=== PATIENT | female | born 1990 | race Caucasian/White ===

== ENCOUNTER → 2019-04-04 | Outpatient (CLI) | payer OTHER ==
--- NOTE | 2019-04-04 13:16 | US ---
EXAMINATION TYPE: US pelvic complete DATE OF EXAM: 04/04/2019 COMPARISON: 2014 CLINICAL HISTORY: N94.6 DYSMENORRHEA. TECHNIQUE: Transabdominal sonographic images of the pelvis were acquired. Date of LMP: 03/29/2019 EXAM MEASUREMENTS: Uterus: 8.1 X 3.0 X 3.9 cm Endometrial Stripe: 0.3 cm Right Ovary: 2.6 x 1.2 x 1.6 cm Left Ovary: 2.4 x 1.6 x 2.1 cm 1. Uterus: Anteverted wnl 2. Endometrium: wnl 3. Right Ovary: wnl 4. Left Ovary: wnl 5. Bilateral Adnexa: wnl 6. Posterior cul-de-sac: wnl IMPRESSION: Right ovarian cyst has resolved. Unremarkable pelvic ultrasound.
== END | disposition home or self-care (01) ==
LOC: RADUSWWP 12:02
PROVIDERS: ATTEND Family Medicine
DX: N94.6 Dysmenorrhea, unspecified (principal)
CPT/HCPCS: 76856

== ENCOUNTER → 2019-04-30 | Outpatient (CLI) | payer OTHER ==
--- NOTE | 2019-04-30 11:30 | US ---
EXAMINATION TYPE: US thyroid st tissue head/neck DATE OF EXAM: 04/30/2019 COMPARISON: NONE CLINICAL HISTORY: E04.9 Enlarged thyroid, E04.1 Nodule. GLAND SIZE: Right Lobe: 6.4 x 1.8 x 2.7 cm Overall Parenchyma: homogenous Left Lobe: 6.2 x 1.8 x 2.2 cm Overall Parenchyma: homogeneous Isthmus Thickness: 0.2 cm NODULES RIGHT: # of nodules measured on right: 1 1. 0.8 x 0.5 x 0.7cm hypoechoic complex nodule at the lateral mid pole with well-defined margins. Thi s nodule is wider than tall and shows intranodular vascularity. prior size: 0.8 x 0.5 x 0.7cm LEFT: # of nodules measured on left: 2 1. 0.4 x 0.3 x 0.3cm anechoic nodule at the mid pole with well-defined margins. This nodule is wider than tall and shows no intranodular vascularity. prior size: 0.5 x 0.4 x 0.5cm 2. 0.4 x 0.4 x 0.4 cm anechoic nodule at the mid lower pole with well-defined margins. This nodule i s wider than tall and shows no intranodular vascularity. prior size: 0.4 x 0.4 x 0.4cm ISTHMUS: # of nodules measured in the isthmus: 0 Bilateral neck scanned, no evidence of lymphadenopathy. IMPRESSION: 1. Bilateral subcentimeter thyroid nodules.
== END ==
LOC: RADUSWWP 10:42
PROVIDERS: ATTEND Family Medicine
DX: E04.2 Nontoxic multinodular goiter (principal)
CPT/HCPCS: 76536

== ENCOUNTER → 2021-03-12 | Outpatient (CLI) | payer BC ==
--- NOTE | 2021-03-12 10:19 | XR ---
EXAMINATION TYPE: XR lumbar spine 2 or 3V DATE OF EXAM: 03/12/2021 COMPARISON: 05/06/2016 HISTORY: Pain TECHNIQUE: 3 view lumbar spine FINDINGS: There are 5 lumbar-type vertebral bodies. Pedicles are intact. Disc heights are preserved. Vertebral body are preserved. Sagittal alignment appears normal. There is mild rotoscoliosis convexit y to the left centered at L2 in the frontal projection. IMPRESSION: 1. Mild rotoscoliosis.
== END | disposition home or self-care (01) ==
LOC: RADXRMAIN 09:50
PROVIDERS: ATTEND Internal Medicine
DX: M41.86 Other forms of scoliosis, lumbar region (principal)
CPT/HCPCS: 72100

== ENCOUNTER 2021-06-11 12:14 | Emergency (ER) | payer BC ==
[2021-06-11] MEDS ORDERED: SODIUM CHLORIDE 0.9% 500 ML 500 ML IV ONE (13:10)
[2021-06-11] MEDS ORDERED: SODIUM CHLORIDE 0.9% 1,000 ML IV ONE (13:10)
[2021-06-11] MEDS ORDERED: ACETAMINOPHEN TAB 500 MG TAB PO STA (13:11)
[2021-06-11] MEDS ORDERED: KETOROLAC 15 MG/ML 1 ML VIAL IVP STA (13:11)
--- NOTE | 2021-06-11 13:42 | ED ---
URI HPI - General Chief Complaint: Upper Respiratory Infection Stated Complaint: sob/cough Time Seen by Provider: 06/11/21 12:49 Source: patient, family, RN notes reviewed Mode of arrival: wheelchair Limitations: no limitations - History of Present Illness Initial Comments: This a 30-year-old female presents emergency from she complaint of chest pain, shortness of breath. Patient states that she tested positive for COVID-19 8 days ago, has been having symptoms for 10+ days. Patient states that she starting having increasing symptoms, exertional pain and shortness of breath. Patient has had no prior DVT no prior PE does not take any blood thinners no hormonal medications. Patient denies any nausea vomiting. Patient's is feels very weak, body aches. - Related Data Home Medications Medication Instructions Recorded Confirmed ALPRAZolam [Xanax] 0.5 - 1 mg PO BID PRN 06/11/21 06/11/21 Albuterol Inhaler [Ventolin Hfa 2 puff INHALATION RT-Q6H PRN 06/11/21 06/11/21 Inhaler] Azithromycin [Zithromax Z-pack (6 See Taper PO DAILY 06/11/21 06/11/21 tabs)] Cholecalciferol [Vitamin D3 (25 50 mcg PO DAILY 06/11/21 06/11/21 Mcg = 1000 Iu)] methylPREDNISolone [Medrol Dose See Taper PO DAILY 06/11/21 06/11/21 Pack] Previous Rx's Medication Instructions Recorded Dexamethasone [Decadron] 6 mg PO DAILY #5 tablet 06/11/21 Allergies Allergy/AdvReac Type Severity Reaction Status Date / Time No Known Allergies Allergy Verified 06/11/21 14:49 Review of Systems ROS Statement: Those systems with pertinent positive or pertinent negative responses have been documented in the HPI. ROS Other: All systems not noted in ROS Statement are negative. Past Medical History Past Medical History: Thyroid Disorder Additional Past Medical History / Comment(s): cyst on ovary History of Any Multi-Drug Resistant Organisms: None Reported Past Surgical History: No Surgical Hx Reported Past Anesthesia/Blood Transfusion Reactions: No Reported Reaction Past Psychological History: No Psychological Hx Reported Smoking Status: Never smoker Past Alcohol Use History: Occasional Past Drug Use History: None Reported - Past Family History Mother Family Medical History: Cancer Additional Family Medical History / Comment(s): cervical cancer General Exam Limitations: no limitations General appearance: alert, in distress Head exam: Present: atraumatic, normocephalic, normal inspection Eye exam: Present: normal appearance, PERRL, EOMI. Absent: scleral icterus, conjunctival injection, periorbital swelling ENT exam: Present: normal oropharynx, mucous membranes moist Neck exam: Present: normal inspection, full ROM. Absent: tenderness, meningismus, lymphadenopathy Respiratory exam: Present: rhonchi, decreased breath sounds. Absent: normal lung sounds bilaterally, respiratory distress, wheezes, rales, stridor Cardiovascular Exam: Present: normal rhythm, tachycardia, normal heart sounds. Absent: systolic murmur, diastolic murmur, rubs, gallop, clicks GI/Abdominal exam: Present: soft, normal bowel sounds. Absent: distended, tenderness, guarding, rebound, rigid Course Vital Signs 06/11/21 06/11/21 12:40 13:44 Temperature 99.2 F Pulse Rate 123 H Respiratory 24 20 Rate Blood Pressure 119/83 O2 Sat by Pulse 93 L Oximetry Medical Decision Making - Medical Decision Making CT was reviewed there is no evidence of large PE. Patient does have bilateral COVID-19 pneumonia. Patient's pulse ox oximetry 9395%. Patient states she does feel improved after antipyretics, fluids. We discussed return for patient discharge and dexamethasone return parameters discussed - Lab Data Result diagrams: 06/11/21 13:44 Lab Results 06/11/21 Range/Units 13:44 WBC 5.8 (3.8-10.6) k/uL RBC 4.84 (3.80-5.40) m/uL Hgb 15.9 (11.4-16.0) gm/dL Hct 46.4 H (34.0-46.0) % MCV 95.9 (80.0-100.0) fL MCH 32.9 (25.0-35.0) pg MCHC 34.3 (31.0-37.0) g/dL RDW 13.9 (11.5-15.5) % Plt Count 190 (150-450) k/uL MPV 10.7 Neutrophils % 81 % Lymphocytes % 11 % Monocytes % 6 % Eosinophils % 0 % Basophils % 0 % Neutrophils # 4.7 (1.3-7.7) k/uL Lymphocytes # 0.6 L (1.0-4.8) k/uL Monocytes # 0.4 (0-1.0) k/uL Eosinophils # 0.0 (0-0.7) k/uL Basophils # 0.0 (0-0.2) k/uL Poikilocytosis Slight - EKG Data -: EKG Interpreted by Me EKG Comments: EKG performed at 14:29 sinus tachycardia rate of 101 OR 166 QRS 90 QT status QTC 358/464 Disposition Clinical Impression: COVID-19 Disposition: HOME SELF-CARE Condition: Stable Instructions (If sedation given, give patient instructions): Coronavirus Disease 2019 (COVID-19) Additional Instructions: Please return to the Emergency Department if symptoms worsen or any other concerns. Prescriptions: Dexamethasone [Decadron] 6 mg PO DAILY #5 tablet Is patient prescribed a controlled substance at d/c from ED?: No Referrals: Mckenzie Carmichael MD [Primary Care Provider] - 1-2 days Time of Disposition: 14:57
[2021-06-11 14:15] LABS: Basophils % (A) 0 %; Eosinophils % (A) 0 %; HCT 46.4 % (34.0-46.0); HGB 15.9 gm/dL (11.4-16.0); Lymphocytes # (A) 0.6 k/uL (1.0-4.8); Lymphocytes % (A) 11 %; MCH 32.9 pg (25.0-35.0); MCHC 34.3 g/dL (31.0-37.0); MCV 95.9 fL (80.0-100.0); Mean Platelet Volume 10.7; Monocytes # (A) 0.4 k/uL (0-1.0); Monocytes % (A) 6 %; Neutrophils # (A) 4.7 k/uL (1.3-7.7); Neutrophils % (A) 81 %; Platelet Count 190 k/uL (150-450); Poikilocytosis Slight; RBC 4.84 m/uL (3.80-5.40); RDW 13.9 % (11.5-15.5); WBC 5.8 k/uL (3.8-10.6)
--- NOTE | 2021-06-11 14:41 | CT ---
EXAMINATION TYPE: CT chest angio for PE DATE OF EXAM: 06/11/2021 COMPARISON: 06/02/2016 HISTORY: 30-year-old female pain, SOB and h/o covid TECHNIQUE: Contiguous axial scanning of the chest performed with IV Contrast, patient injected with 1 00 mL of Isovue 370. Coronal and sagittal MIP reconstructions performed. CT DLP: 538.3 mGycm Automated exposure control for dose reduction was used. FINDINGS: Heart normal size without pericardial effusion. No flattening of the interventricular septum or reflu x of contrast into the hepatic veins. Aorta normal caliber with conventional arch vessel branching anatomy. Prominent but nonenlarged 7 mm precarinal lymph node. Enlarged 2.0 cm right hilar lymph node. Additio nal nonenlarged left hilar lymph nodes. Calcified left infrahilar lymph node compatible prior granulo matous disease. There appears to be a third right-sided pulmonary vein. While there is satisfactory opacification of the pulmonary arterial system, there is breathing motion artifact limiting the evaluation. Within this limitation, no large central or lobar branch pulmonary embolus is seen. Many of the segmental and more distal arterial branches are very limited and nondia gnostic. Multifocal peripheral peribronchial vascular groundglass opacity disease within mid and lower lung pr edominance. No pleural effusion. Visualized upper abdomen shows splenomegaly at 15.0 cm. Suspect underlying hepatic steatosis. IMPRESSION: 1. BREATHING MOTION ARTIFACT DEGRADING ASSESSMENT FOR PULMONARY EMBOLUS. NO LARGE CENTRAL OR LOBAR BR ANCH EMBOLUS. MANY OF THE SEGMENTAL AND MORE DISTAL ARTERIAL BRANCHES ARE VERY LIMITED TO NONDIAGNOST IC AND EMBOLI IN THESE LOCATIONS CANNOT BE ADEQUATELY EXCLUDED ON THE BASIS OF THIS EXAM. 2. BILATERAL COVID PNEUMONIA. 3. SPLENOMEGALY AT 15.0 CM. CLINICALLY CORRELATE.
[2021-06-11] MEDS ORDERED: DEXAMETHASONE SOD PHOSPHATE 10 MG/ML 1 ML VIAL IVP STA (14:42)
[2021-06-11 14:59] LABS: ALT 20 U/L (4-34); AST 34 U/L (14-36); African American GFR (CKD) >90 (>60 ml/min/1.73 sqM); Albumin 3.4 g/dL (3.5-5.0); Alkaline Phosphatase 48 U/L (38-126); Anion Gap 7 mmol/L; Blood Urea Nitrogen 8 mg/dL (7-17); Calcium 8.2 mg/dL (8.4-10.2); Carbon Dioxide 21 mmol/L (22-30); Chloride 104 mmol/L (98-107); Glucose 106 mg/dL (74-99); LDH 1156 U/L (313-618); Non-African American GFR(CKD) >90 (>60 ml/min/1.73 sqM); Potassium 3.5 mmol/L (3.5-5.1); Sodium 132 mmol/L (137-145); Total Bilirubin 0.5 mg/dL (0.2-1.3); Total Protein 6.6 g/dL (6.3-8.2)
[2021-06-11 15:02] VITALS: BP 127/70; PULSE 98; RESP 18; TEMP 98.7
[2021-06-11 15:15] LABS: C Reactive Protein 14.5 mg/dL (<1.0)
== END 2021-06-11 15:19 | disposition home or self-care (01) ==
LOC: EC 12:14
DX: U07.1 COVID-19 (principal); J12.82 Pneumonia due to coronavirus disease 2019; Z79.899 Other long term (current) drug therapy
CPT/HCPCS: 36415; 93005; 80053; 83615; 85025; 86140; 71275; 99285; 96374; 96375; 96361; J1100; J1885; Q9967

== ENCOUNTER → 2021-06-23 | Outpatient (CLI) | payer BC ==
--- NOTE | 2021-06-23 11:37 | XR ---
EXAMINATION TYPE: XR chest 2V DATE OF EXAM: 06/23/2021 COMPARISON: 06/02/[address] 06/11/2021 HISTORY: 30-year-old female dyspnea, shortness of breath. TECHNIQUE: Frontal and lateral views FINDINGS: Heart normal size. Patchy airspace opacities in the bilateral mid and lower lungs. No pleural effusio n. No pneumothorax. IMPRESSION: Ongoing patchy bilateral mid and lower lung COVID pneumonia.
--- NOTE | 2021-06-23 12:23 | US ---
EXAMINATION TYPE: US venous doppler duplex LE DATE OF EXAM: 06/23/2021 11:26 AM COMPARISON: CT chest CLINICAL HISTORY: M79.66 pain LE M22.42 swelling LE. Left leg swelling x 2 days post COVID 19 SIDE PERFORMED: Bilateral TECHNIQUE: The lower extremity deep venous system is examined utilizing real time linear array sonog annika with graded compression, doppler sonography and color-flow sonography. VESSELS IMAGED: Common Femoral Vein Deep Femoral Vein Greater Saphenous Vein * Femoral Vein Popliteal Vein Small Saphenous Vein * Proximal Calf Veins (* superficial vessels) Right Leg: Negative for DVT Left Leg: Negative for DVT IMPRESSION: No evidence of DVT.
== END | disposition home or self-care (01) ==
LOC: RADXRMAIN 11:20
PROVIDERS: ATTEND Internal Medicine
DX: M79.662 Pain in left lower leg (principal); R22.42 Localized swelling, mass and lump, left lower limb; R06.02 Shortness of breath; Z86.16 Personal history of COVID-19
CPT/HCPCS: 71046; 93970

== ENCOUNTER → 2021-10-28 | Outpatient (CLI) | payer BC ==
--- NOTE | 2021-10-29 08:48 | US ---
EXAMINATION TYPE: US thyroid st tissue head/neck DATE OF EXAM: 10/28/2021 COMPARISON: NONE CLINICAL HISTORY: E04.9 Nontoxic goiter. Thyroid nodules GLAND SIZE: Right Lobe: 5.9 x 1.8 x 2.7 cm Overall Parenchyma: homogenous Left Lobe: 6.0 x 1.8 x 2.5 cm Overall Parenchyma: homogeneous Isthmus Thickness: .3 cm NODULES RIGHT: # of nodules measured on right: 1 1. 1.3 X 1.2 x .8 cm, lower lateral, mixed cystic and solid, complex hypoechoic with cystic compon ents nodule, which is wider than tall, with smooth margins, without echogenic foci. TR 3 mildly suspi cious Prior size: .8 x .5 x .7 cm LEFT: # of nodules measured on left: Multiple subcentimeter nodules seen. ISTHMUS: # of nodules measured in the isthmus: 0 Bilateral neck scanned, no evidence of lymphadenopathy. IMPRESSION: 1. Mildly suspicious nodule right lobe thyroid 2017 ACR TI-RADS LEVEL: TR-RADS 3 - Mildly Suspicious: Follow if > 1.5 cm, FNA if > 2.5 cm *Highest TI-RADS level nodule reported
== END | disposition home or self-care (01) ==
LOC: RADUSWWP 15:29
PROVIDERS: ATTEND Family Medicine
DX: E04.9 Nontoxic goiter, unspecified (principal)
CPT/HCPCS: 76536

== ENCOUNTER → 2022-07-29 | Outpatient (CLI) | payer BC ==
--- NOTE | 2022-07-29 14:03 | US ---
EXAMINATION TYPE: US thyroid st tissue head/neck DATE OF EXAM: 07/29/2022 COMPARISON: 10/28/2021 CLINICAL HISTORY: E04.9 NONTOXIC GOITER, UNSPECIFIED. GLAND SIZE: Right Lobe: 8.1 x 2.1 x 2.6 cm Overall Parenchyma: homogenous Left Lobe: 7.1 x 1.9 x 2.0 cm Overall Parenchyma: homogeneous Isthmus Thickness: 0.51 cm NODULES RIGHT: # of nodules measured on right: 1 1. 1.3 X 0.72 x 1.2 cm, lower , mixed cystic and solid, which is wider than tall, with smooth marnie ns, without echogenic foci. Prior size: 1.3 x 0.8 x 1.2 cm LEFT: # of nodules measured on left: Multiple subcentimeter nodules, largest measured 1. 0.51 X 0.37 x 0.55 cm, upper , cystic or almost completely cystic, anechoic nodule, which is wid er than tall, with smooth margins, without echogenic foci. Stable from prior exam. ISTHMUS: # of nodules measured in the isthmus: 0 Bilateral neck scanned, no evidence of lymphadenopathy. IMPRESSION: Stable right thyroid lobe nodule measuring up to 1.3 cm consistent with TI-RADS category TR3. 2017 ACR TI-RADS LEVEL: TR-RADS 3 - Mildly Suspicious: Follow if > 1.5 cm, FNA if > 2.5 cm *Highest TI-RADS level nodule reported
== END | disposition home or self-care (01) ==
LOC: RADUSWWP 13:32
PROVIDERS: ATTEND Family Medicine
DX: E04.1 Nontoxic single thyroid nodule (principal)
CPT/HCPCS: 76536

== ENCOUNTER 2022-08-03 20:39 | Emergency (ER) | payer BC ==
[2022-08-03 21:07] VITALS: BP 122/91; PULSE 76; RESP 16; TEMP 97.9
[2022-08-03] MEDS ORDERED: LIDOCAINE 1% INJ 10MG/ML (30 ML VIAL-PF) SQ ONE (22:44)
[2022-08-03] MEDS ORDERED: ACET/COD 300 MG/30 MG STARTER PACK 6 TAB BTL PO STA (23:19)
--- NOTE | 2022-08-03 23:21 | ED ---
Wound/Laceration HPI - General Chief Complaint: Wound/Laceration Stated Complaint: left finger laceration Time Seen by Provider: 08/03/22 22:07 Source: patient, RN notes reviewed Mode of arrival: ambulatory Limitations: no limitations - History of Present Illness Initial Comments: This is a 31-year-old female who presents to the emergency department for a left finger laceration. States that she was chopping tomatoes when this happened. Unsure when her last tetanus shot was. Denies any fevers, chills, sore throat, cough, dyspnea, chest pain, palpitations, abdominal pain, nausea, vomiting, diarrhea, back pain, or headaches. - Related Data Home Medications Medication Instructions Recorded Confirmed ALPRAZolam [Xanax] 0.5 - 1 mg PO BID PRN 06/11/21 06/11/21 Albuterol Inhaler [Ventolin Hfa 2 puff INHALATION RT-Q6H PRN 06/11/21 06/11/21 Inhaler] Azithromycin [Zithromax Z-pack (6 See Taper PO DAILY 06/11/21 06/11/21 tabs)] Cholecalciferol [Vitamin D3 (25 50 mcg PO DAILY 06/11/21 06/11/21 Mcg = 1000 Iu)] methylPREDNISolone [Medrol Dose See Taper PO DAILY 06/11/21 06/11/21 Pack] Previous Rx's Medication Instructions Recorded dexAMETHasone [Decadron] 6 mg PO DAILY #5 tablet 06/11/21 Allergies Allergy/AdvReac Type Severity Reaction Status Date / Time No Known Allergies Allergy Verified 08/03/22 21:03 Review of Systems ROS Statement: Those systems with pertinent positive or pertinent negative responses have been documented in the HPI. ROS Other: All systems not noted in ROS Statement are negative. Past Medical History Past Medical History: Thyroid Disorder Additional Past Medical History / Comment(s): cyst on ovary History of Any Multi-Drug Resistant Organisms: None Reported Past Surgical History: No Surgical Hx Reported Past Anesthesia/Blood Transfusion Reactions: No Reported Reaction Past Psychological History: No Psychological Hx Reported Smoking Status: Never smoker Past Alcohol Use History: Occasional Past Drug Use History: None Reported - Past Family History Mother Family Medical History: Cancer Additional Family Medical History / Comment(s): cervical cancer General Exam Limitations: no limitations General appearance: alert, in no apparent distress Head exam: Present: atraumatic, normocephalic, normal inspection Respiratory exam: Present: normal lung sounds bilaterally. Absent: respiratory distress, wheezes, rales, rhonchi, stridor Cardiovascular Exam: Present: regular rate, normal rhythm, normal heart sounds. Absent: systolic murmur, diastolic murmur, rubs, gallop, clicks Neurological exam: Present: alert, oriented X3, CN II-XII intact Psychiatric exam: Present: normal affect, normal mood Skin exam: Present: other (3 cm flap laceration to the finger pad of the left third digit. Active bleeding. Visible subcutaneous tissue.) Course Vital Signs 08/03/22 21:04 Temperature 97.9 F Pulse Rate 76 Respiratory 16 Rate Blood Pressure 122/91 O2 Sat by Pulse 96 Oximetry Procedures - Laceration Laceration #1 Consent Obtained: verbal consent Indication: laceration Site: other (finger) Size (cm): 3 Description: flap Depth: simple, single layer Anesthetic Used: lidocaine 1% Anesthesia Technique: local infiltration Amount (mls): 2 Type of Sutures: nylon Size of Sutures: 5-0 Number of Sutures: 4 Technique: simple, interrupted Medical Decision Making - Medical Decision Making This is a 31-year-old female who presents to the emergency department for a laceration. Was pt. sent in by a medical professional or institution? @ -No Did you speak to anyone other than the patient for history? @ -No Did you review nursing and triage notes? @ -Agree, accurate with regards to the patient's symptoms. Were old charts reviewed? @ -No Differential Diagnosis? @ -Not applicable What testing was considered but not performed? (CT, X-rays, U/S, labs)? Why? @ -None What meds were considered but not given? Why? @ -None Did you discuss the management of the patient with other professionals? @ -No Did you reconcile home meds? @ -No Was smoking cessation discussed for >3mins.? @ -No Was critical care preformed (if so, how long)? @ -No Were there social determinants of health that impacted care today? How? (Homelessness, low income, unemployed, alcoholism, drug addiction, transportation, low edu. Level, literacy, decrease access to med. care, skilled nursing, rehab)? @ -No Was there de-escalation of care discussed even if they declined? (Discuss DNR or withdrawal of care, Hospice)? @ -No What co-morbidities impacted this encounter? (DM, HTN, Smoking, COPD, CAD, Cancer, CVA, Hep., AIDS, mental health diagnosis, sleep apnea, morbid obesity)? @ -None Was patient admitted / discharged? @ -Discharged. Sutures were placed. I did strongly advise a tetanus vaccine, however the patient declined despite my strongest recommendations. She is instructed to return in 5-7 days for suture removal. Advised ibuprofen and Tylenol as needed for pain relief. Drug Therapy requiring intensive monitoring for toxicity (Heparin, Nitro, Insulin, Cardizem)? @ -None Were any procedures done? @ -Yes, laceration repair with sutures. Diagnosis/symptom? @ -Laceration Acute, or Chronic, or Acute on Chronic? @ -Acute Uncomplicated (without systemic symptoms) or Complicated (systemic symptoms)? @ -Uncomplicated Side effects of treatment? @ -Infection Exacerbation, Progression, or Severe Exacerbation] @ -Not applicable Poses a threat to life or bodily function? @ -No Return precautions reviewed in depth, the patient is instructed to return to the emergency department with any new, worsening, or concerning symptoms. Patient verbalized understanding. This case was discussed in detail with the attending ED physician. Presentation, findings, and treatment plan discussed in detail as well. Disposition Clinical Impression: Laceration Disposition: HOME SELF-CARE Instructions (If sedation given, give patient instructions): Care For Your Stitches (ED) Additional Instructions: Return to the emergency department with any new, worsening, or concerning symptoms and in 5-7 days for removal of the stitches. Alternate with ibuprofen and Tylenol as needed for pain relief. You can apply ice over the finger, however keep a barrier between the finger and the ice pack with something like a washcloth or paper towel. Follow up with your primary care provider in 1-2 days. Is patient prescribed a controlled substance at d/c from ED?: No Referrals: Prasanth Vale III, MD [Primary Care Provider] - 1-2 days
== END 2022-08-03 23:34 | disposition home or self-care (01) ==
LOC: EC 20:39
DX: S61.213A Laceration without foreign body of left middle finger without damage to nail, initial encounter (principal); X58.XXXA Exposure to other specified factors, initial encounter
CPT/HCPCS: 99282; 12002; J2001

== ENCOUNTER → 2023-01-27 | Outpatient (CLI) | payer BC | END | disposition home or self-care (01) | LOC: RADUSWWP 12:11 | PROVIDERS: ATTEND Family Medicine | DX: Z53.9 Procedure and treatment not carried out, unspecified reason (principal) ==

== ENCOUNTER → 2023-09-12 | Outpatient (CLI) | payer MEDICAID ==
[2023-09-12 16:12] LABS: ALT 26 U/L (8-44); AST 20 U/L (13-35); Albumin 4.4 g/dL (3.8-4.9); Albumin/Globulin Ratio 1.47 Ratio (1.60-3.17); Alkaline Phosphatase 91 U/L (41-126); BUN/Creat Ratio 18.67 Ratio (12.00-20.00); Blood Urea Nitrogen 11.2 mg/dL (9.0-27.0); Calcium 9.3 mg/dL (8.7-10.3); Carbon Dioxide 23.8 mmol/L (21.6-31.8); Chloride 102 mmol/L (96-109); Chol/HDL Ratio 2.52 Ratio; Glucose 92 mg/dL (70-110); LDL Cholesterol,Calculated 70.1 mg/dL (0.0-131.0); Potassium 4.4 mmol/L (3.5-5.5); Sodium 137 mmol/L (135-145); T4, Free (Free Thyroxine) 1.05 ng/dL (0.80-1.80); Total Bilirubin 0.4 mg/dL (0.3-1.2); Total Protein 7.4 g/dL (6.2-8.2)
[2023-09-12 16:17] LABS: Basophils # (A) 0.03 X 10*3/uL (0.00-0.10); Basophils % (A) 0.4 %; Eosinophils # (A) 0.05 X 10*3/uL (0.04-0.35); Eosinophils % (A) 0.7 %; HCT 46.6 % (37.2-46.3); HGB 15.3 g/dL (12.0-15.0); Lymphocytes # (A) 2.37 X 10*3/uL (0.90-5.00); Lymphocytes % (A) 32.4 %; MCH 31.6 pg (27.0-32.0); MCHC 32.8 g/dL (32.0-37.0); MCV 96.3 FL (80.0-97.0); Mean Platelet Volume 11.2 FL (9.5-12.2); Monocytes # (A) 0.63 X 10*3/uL (0.20-1.00); Monocytes % (A) 8.6 %; NRBC Per 100 WBC 0 X 10*3/uL (0.00-0.01); Neutrophils # (A) 4.21 X 10*3/uL (1.80-7.70); Neutrophils % (A) 57.6 %; Platelet Count 255 X 10*3/uL (140-440); RBC 4.84 X 10*6/uL (4.10-5.20); RDW 13.1 % (11.5-14.5); WBC 7.31 X 10*3/uL (4.50-10.00)
[2023-09-12 18:16] LABS: Appearance,Urine Clear (Clear); Bilirubin,Urine Negative (Negative); Blood,Urine Negative (Negative); Color,Urine Yellow (Yellow); Ketones,Urine Negative (Negative); Nitrite,Urine Negative (Negative); PH, Urine 6.5; Specific Gravity,Urine 1.007 (1.001-1.030); Urobilinogen,Urine 0.2 E.U./DL
--- NOTE | 2023-09-13 14:43 | US ---
EXAMINATION TYPE: US thyroid st tissue head/neck DATE OF EXAM: 09/12/2023 COMPARISON: 07/29/2022 CLINICAL INDICATION: Female, 32 years old with history of E04.9 NONTOXIC GOITER, UNSPECIFIED; thy nod ule GLAND SIZE: Right Lobe: 6.1 x 2.1 x 2.8 cm Overall Parenchyma: homogeneous Left Lobe: 6.6 x 1.8 x 2.5 cm Overall Parenchyma: homogeneous Isthmus Thickness: 4 mm NODULES RIGHT: # of nodules measured on right: 1 1. 1.2 X .7 x 1.0 cm, lower lateral, mixed cystic and solid, TR 3 nodule, which is wider than tall, with smooth margins, without echogenic foci. Prior size: 1.3 x .7 x 1.2 cm LEFT: # of nodules measured on left: multiple subcentimeter measured largest. 1. .6 X .3 x .6 cm, upper lateral, likely colloid cyst. Prior size: .5 x .4 x .6 cm ISTHMUS: # of nodules measured in the isthmus: 0 Bilateral neck scanned, no evidence of lymphadenopathy. IMPRESSION: 1. Mild thyromegaly. 2. Stable mixed TR3 nodule in the right lobe at 1.2 cm. 3. Benign 6 mm colloid cyst on the left. Additional smaller nodules are present on the left. 2017 ACR TI-RADS LEVEL: TR-RADS 3 - Mildly Suspicious: Follow if > 1.5 cm, FNA if > 2.5 cm *Highest TI-RADS level nodule reported
== END | disposition home or self-care (01) ==
LOC: RADUSWWP 11:50
PROVIDERS: ATTEND Family Medicine
DX: E04.1 Nontoxic single thyroid nodule (principal); R22.0 Localized swelling, mass and lump, head; E66.9 Obesity, unspecified
CPT/HCPCS: 76536; 80053; 80061; 81003; 82306; 83036; 84439; 84443; 84481; 85025

== ENCOUNTER → 2024-04-22 | Outpatient (CLI) | payer MEDICAID ==
--- NOTE | 2024-04-22 18:24 | US ---
EXAMINATION TYPE: US thyroid st tissue head/neck DATE OF EXAM: 04/22/2024 COMPARISON: NONE CLINICAL INDICATION: Female, 33 years old with history of E04.1 NONTOXIC SINGLE THYROID NODULE; follo w up GLAND SIZE: Right Lobe: 6.2 x 2.0 x 2.7 cm Overall Parenchyma: homogeneous Left Lobe: 6.0 x 1.7 x 2.5 cm Overall Parenchyma: homogeneous Isthmus Thickness: 0.3 cm NODULES RIGHT: # of nodules measured on right: 1 1. 1.1 X 0.8 x 1.0 cm, lower lateral, mixed cystic and solid, nodule, which is wider than tall, wit h smooth margins, without echogenic foci. Prior size: 1.2 x 0.7 x 1.0 cm LEFT: # of nodules measured on left: 1 1. 0.7 X 0.4 x 0.8 cm, upper lateral, cystic or almost completely cystic, hypoechoic nodule, which is wider than tall, with smooth margins, without echogenic foci. Prior size: 0.6 x 0.3 x 0.6 cm ISTHMUS: # of nodules measured in the isthmus: 0 Bilateral neck scanned, no evidence of lymphadenopathy. IMPRESSION: TR-RADS 3 - Mildly Suspicious: Follow if > 1.5 cm, FNA if > 2.5 cm [facility] Braun, , 04/22/2024 6:22 PM
== END | disposition home or self-care (01) ==
LOC: RADUSWWP 11:25
PROVIDERS: ATTEND Family Medicine
DX: E04.1 Nontoxic single thyroid nodule (principal)
CPT/HCPCS: 76536

== ENCOUNTER → 2024-06-02 | Outpatient (CLI) | payer MEDICAID ==
--- NOTE | 2024-06-02 20:56 | MR ---
EXAMINATION TYPE: MRI left knee without IV contrast DATE OF EXAM: 06/02/2024 COMPARISON: None HISTORY: Left Knee Pain medial side, minor swelling post fall TECHNIQUE: Multiplanar, multisequence imaging of the left knee knee is performed without IV contrast. FINDINGS: MEDIAL MENISCUS: Increased intrasubstance signal in the body and posterior horn of the medial meniscu s without strict criteria for tear. LATERAL MENISCUS: Horizontal tear of the anterior horn root junction of the lateral meniscus with an associated conglomerate apparent meniscal cysts measuring 11 x 32 x 7 mm (AP, TV and CC dimensions). Undersurface fraying of the posterior root of the lateral meniscus. CRUCIATE LIGAMENTS: The anterior and posterior cruciate ligaments are intact and unremarkable. COLLATERAL LIGAMENTS: Approximately 75% partial thickness tear of the proximal medial collateral liga ment with diffuse surrounding edema. Lateral collateral ligament complex is intact. EXTENSOR MECHANISM: Visualized quadriceps and patellar tendons are intact. EFFUSION: No sizable joint effusion. POPLITEAL CYST: No sizable Gong's cyst. CARTILAGE: Full-thickness chondral fissure within the medial patellar facet. Chondral fibrillation along the central aspect of the lateral tibial plateau over a 10 x 10 mm area. Medial compartment cartilage is intact. BONE MARROW SIGNAL: Negative for acute fracture or a discrete marrow replacing process. OTHER: No additional significant abnormality is appreciated. IMPRESSION: 1. Grade 2 injury of the medial collateral ligament. 2. Lateral meniscal tearing as above with associated para meniscal cysts at the anterior intercondyla r notch. 3. Minimal patellofemoral and lateral compartment chondrosis as above. [facility], Workstation: [email or web address], 06/02/2024 8:54 PM
== END | disposition home or self-care (01) ==
LOC: RADMRIMAIN 06:23
PROVIDERS: ATTEND Orthopaedic Surgery Sports Medicine
DX: S83.282A Other tear of lateral meniscus, current injury, left knee, initial encounter (principal)

== ENCOUNTER → 2024-09-01 | Outpatient (CLI) | payer MEDICAID ==
--- NOTE | 2024-09-01 07:48 | MR ---
INDICATION: Patient age:Female; 33 years old; Reason for study: M54.16 RADICULOPATHY LUMBAR REGION; [facility]. COMPARISONS: Lumbar spine radiographs 03/12/2021, complete spine radiograph/scoliosis survey 05/06/2016 . TECHNIQUE: Multi planar, multi sequence imaging was performed utilizing: T1-weighted, T2-weighted, a nd turbo inversion recovery imaging of the lumbar spine. The patient was not given contrast. FINDINGS: The lumbar vertebral bodies do have preserved heights. Similar levoscoliotic curvature of the lumbar spine with apex at L3. Type II Modic changes of the endplates around L5-S1 disc. Disc hugh ccation at L4-L5 and L5-S1. The conus medullaris and the distal spinal cord do appear unremarkable wi th regards to their signal intensity and morphology. L1-L2: No significant disc pathology is identified. The spinal canal and neural foramen are patent. L2-L3: No significant disc pathology is identified. The spinal canal and neural foramen are patent. L3-L4: No significant disc pathology is identified. The spinal canal and neural foramen are patent. L4-L5: Left paracentral small disc protrusion with minimal effacement of anterior thecal sac. No cent ral canal stenosis. Bilateral facet arthropathy. Mild left neural foraminal stenosis. The right neura l foramen is patent. L5-S1: The intervertebral disc appears round on its contour posteriorly without significant mass eff ect upon the thecal sac. Facet joints are enlarged. Neural canals do remain patent. Other significant findings: None. IMPRESSION: 1. No definitive evidence for significant spinal canal stenosis. 2. Degenerative disc disease involving L4-L5 and L5-S1 with facet arthropathy. Disc protrusion at L4 -L5. 3. Mild levoscoliosis of the lumbar spine. [facility], , 09/01/2024 7:46 AM
== END | disposition home or self-care (01) ==
LOC: RADMRIMAIN 06:55
PROVIDERS: ATTEND Family Medicine
DX: M51.17 Intervertebral disc disorders with radiculopathy, lumbosacral region (principal); M51.16 Intervertebral disc disorders with radiculopathy, lumbar region; M41.86 Other forms of scoliosis, lumbar region
CPT/HCPCS: 72148

== ENCOUNTER → 2025-01-28 | Outpatient (CLI) | payer MEDICAID | END | disposition home or self-care (01) | LOC: RADUSWWP 10:25 | PROVIDERS: ATTEND Family Medicine | DX: Z53.9 Procedure and treatment not carried out, unspecified reason (principal) ==